=== PATIENT | female | born 1970 | race Caucasian/White ===

== ENCOUNTER → 2016-07-28 | Outpatient (CLI) | payer BC ==
[~2016-07-28] MED LIST: ALBU18002 INH; AMLO-110 PO; CHOL1TAB42 PO; LORA-741 PO; MAGN400T6 PO; MONT1TAB3 PO; MULT-506 PO; NTRGSL/4 UT; NXM/40 PO; OXYC-57 PO; SYMIN160 INH; VITA1TAB4 PO
[2016-07-28 17:26] LABS: HEMATOCRIT 45.8 % (37-47); MEAN CELL VOLUME 86.9 fL (80-100); MEAN CORPUSCULAR HEMOGLOBIN 28.8 pg (25-34); MEAN CORPUSCULAR HGB CONC 33.2 g/dl (32-36); MEAN PLATELET VOLUME 9.8 fL (7.4-10.4); PLATELET COUNT 448 K/uL (130-400); RED BLOOD COUNT 5.27 M/uL (4.2-5.4); WHITE BLOOD COUNT 17.02 K/uL (4.8-10.8)
[2016-07-28 17:47] LABS: BASO % 0.2 %; BASO ABS # 0.04 K/uL (0-0.2); COMPLETE YES; EOS % 1.2 %; IG% 0.4 %; LYMPH % 38.3 %; LYMPH ABS # 6.52 K/uL (1.2-3.4); MONO % 5.9 %
[2016-07-28 17:49] LABS: BLOOD UREA NITROGEN 11 mg/dl (7-18); BUN/CREATININE RATIO 13.8 (10-20); CALCIUM 9.3 mg/dl (8.5-10.1); CARBON DIOXIDE 30 mmol/L (21-32); CHLORIDE 104 mmol/L (98-107); GLUCOSE 85 mg/dl (70-99); POTASSIUM 3.7 mmol/L (3.5-5.1); SODIUM 142 mmol/L (136-145)
== END | disposition home or self-care (01) ==
LOC: C.LAB 16:49
PROVIDERS: ATTEND Orthopaedic Surgery
DX: Z01.812 Encounter for preprocedural laboratory examination (principal)

== ENCOUNTER → 2016-08-01 | Day surgery (SDC) | payer BC ==
[2016-07-31 10:25] VITALS: BMI 37.0
--- NOTE | 2016-07-31 17:52 | HISTORY & PHYSICAL EXAMINATION ---
DATE OF ADMISSION: 08/01/2016 HISTORY OF PRESENT ILLNESS: The patient is a very pleasant 46-year-old female, 61 inches and 194 pounds who presents with complaints of ongoing pain about her left shoulder. She has a SLAP lesion of her left shoulder and presents today for arthroscopic evaluation after failing attempts at conservative management including physical therapy, anti-inflammatories, relative rest. PAST MEDICAL HISTORY: Significant for asthma, anxiety, intermittent angina. SOCIAL HISTORY: The patient denies history of smoking, alcohol use or recreational drug use. PAST SURGICAL HISTORY: Significant for right eye surgery. FAMILY HISTORY: Otherwise unremarkable and noncontributory. ALLERGIES: PENICILLIN, CLINDAMYCIN, VANCOMYCIN. MEDICATIONS: Includes albuterol sulfate, ProAir inhaler 2 puffs 2 times a day, Nexium 40 mg by mouth daily, lorazepam 0.5 mg by mouth orally as needed. ALLERGIES: None. PAST MEDICAL HISTORY: Otherwise unremarkable. See history of present illness for pertinent positives. PHYSICAL EXAMINATION: GENERAL: A very pleasant 46-year-old female with the above findings noted. HEENT: Otherwise unremarkable. HEART: Noted to be regular at 72 beats per minute. LUNGS: Clear. No rales, rhonchi, or wheezes noted. ABDOMEN: Soft, nontender, nondistended. Bowel sounds are present in all 4 quadrants. MUSCULOSKELETAL: Consistent with that of a torn rotator cuff with a SLAP lesion. PLAN: For arthroscopy, arthroscopic SLAP repair, postoperative pain management, DVT prophylaxis, antibiotics as necessary.
[~2016-08-01] VITALS: Ht 154.9 cm; Wt 88.2 kg
[~2016-08-01] MED LIST changes: +ATROPINE SULFATE 0.1 MG/ML 5ML SYR IV PRN; +DEXAMETHASONE SOD INJ 4 MG/ML VIAL ONE; +EpHEDrine SULFATE INJ 50 MG/ML AMP IV PRN; +FENTANYL CITRATE INJ 50 MCG/1 ML 2 ML VIAL IV PRN; +FENTANYL CITRATE INJ 50 MCG/1 ML 2 ML VIAL ONE; +GLYCOPYRROLATE INJ 0.2 MG/ML VIAL ONE; +LACTATED RINGER'S 1000ML 1,000 ML IV SCH; +LIDOCAINE HCL 2% 2 ML VIAL (20MG/ML) ONE; +MIDAZOLAM HCL 1 MG/ML 2ML VIAL ONE; +MoRPHine SULFATE 2 MG/ML CARP IV PRN; +NEOSTIGMINE METHYLSULFATE 5 MG/5 ML SYR ONE; +ONDANSETRON INJ 2 MG/ML 2 ML VIAL IV PRN; +ONDANSETRON INJ 2 MG/ML 2 ML VIAL ONE; +OXYCODONE HCL IR 5 MG TAB (IMMEDIATE RELEASE) PO PRN; +PHENYLEPHRINE 100MCG/ML 5ML SYR ONE; +PROPOFOL IV EMULSION 10 MG/ML 20 ML VIAL IV ONE; +ROCURONIUM BROMIDE 10 MG/ML 5 ML VIAL ONE; +ROPIVACAINE 0.5% 5 MG/ML 30 ML VIAL ONE; +SUCCINYLCHOLINE 100MG/5ML SYR IV ONE; +VANCOMYCIN 1GM/270ML NSS IV SCH
--- NOTE | 2016-08-01 07:09 | History & Physical Bridge Note ---
H&P Re-Evaluation Bridge Note: I have examined the patient, reviewed the History & Physical and in the interval since the performance of the History & Physical I have noted the following changes of clinical significance: No changes noted
[2016-08-01 09:20] VITALS: BP 136/93; PULSE 87; TEMP 36.7; O2SAT 96; Ht 154.9 cm; Wt 88.2 kg
--- NOTE | 2016-08-01 10:26 | DIAGNOSTIC IMAGING REPORT ---
CHEST ONE VIEW PORTABLE CLINICAL HISTORY: Preoperative chest COMPARISON STUDY: No previous studies for comparison. FINDINGS: The cardiac and mediastinal contours are normal. There is no evidence of focal pulmonary consolidation. There is no evidence of failure. No pleural effusions are visualized.[ Haziness the lung bases is felt to be secondary to overlying breast tissue attenuation. There is a peritendinous calcification at the level of the left humeral head. IMPRESSION: No active disease in the chest. Electronically signed by: Isidro Jonas M.D. 08/01/2016 10:25 AM Dictated Date/Time: 08/01/2016 10:24 AM
--- NOTE | 2016-08-01 12:05 | [facility] Post Operative Brief Note ---
Immediate Operative Summary Operative Date Aug 01, 2016. Pre-Operative Diagnosis SLAP tear bicepstendon attachment Impingement syndrome Post-Operative Diagnosis same Procedure(s) Performed SLAP tear repair using 1.8 mmQfix acromioplasty Surgeon zuhair Patient Support Tech Surgeon(s) bri Estimated Blood Loss 5cc Findings SLAP tear impingement syndrome Specimens none Complication(s) None Disposition Recovery Room / PACU
[2016-08-01] MEDS: HYDROmorphone INJ 1 MG/ML SYR IV PRN ×5 (12:34→12:54)
--- NOTE | 2016-08-01 12:34 | Discharge Instructions ---
Discharge Instructions Date of Service Aug 01, 2016. Visit Reason for Visit: Left Shoulder Slap Tear, Rotator Cuff Capsule Spra Discharge Discharge Diagnosis / Problem: Slap Tear Left Shoulder; Discharge Goals Goal(s): Decrease discomfort, Improve function Activity Recommendations Activity Limitations: per Instructions/Follow-up section Anesthesia . Post Anesthesia Instructions: If you have had General Anesthesia or IV Sedation: * Do not drive today. * Resume driving when surgeon permits. * Do not make important decisions or sign legal documents today. * Call surgeon for: 1. Temperature elevations greater than 101 degrees F. 2. Uncontrollable pain. 3. Excessive bleeding. 4. Persistent nausea and vomiting. 5. Medication intolerance (nausea, vomiting or rash). * For nausea and vomiting use only clear liquids such as: tea, soda, bouillon until nausea subsides, then gradually increase diet as tolerated. * If you have any concerns or questions, call your surgeon's office. If physician is unavailable and it is an emergency, call 911 or go to the nearest emergency room. . Instructions / Follow-Up Instructions / Follow-Up [facility] [place] DISCHARGE INSTRUCTIONS: Slap Tear Repair SELF CARE INSTRUCTIONS A. You are permitted to loosen your sling/immobilizer to move your elbow, wrist , and hand to prevent stiffness. You should use your well arm (good arm) to assist the operated extremity when trying to raise the arm away from the body, hygiene purposes. Do NOT actively try to use/engage your shoulder muscles in operative arm at this time. You should NOT do overhead activity, lifting, or attempt to reach behind your back. B. You are to start Physical Therapy this Sunday after discharge. You will be provided a prescription for therapy with specific restrictions, if needed, at time of discharge. C. At 48 hours post-operatively, you may change your dressing. (Leave white steri-strips intact if present). Use band-aids and change daily. You are allowed to shower at this time and get the incision area wet, but DO NOT soak or submerge incision area in water. (No baths, swimming pools, hot tubs) D. Do NOT apply soap or any ointment/lotions directly over incision. E. You may use ice as needed to operative shoulder SPECIAL CARE INSTRUCTIONS: VERY IMPORTANT TO READ AND REVIEW A. There are a few signs you need to watch for after you are home. Call [facility] [place] at [phone] if you experience any of the following: a. Increased severe shoulder pain. Some pain is expected especially when you exercise b. Increased swelling in your shoulder or arm; pain or swelling in either upper extremity. (Note: swelling and stiffness is normal and expected for several weeks post op, depending on type of shoulder surgery you had). c. Any fluid or drainage from the incision; redness of the incision. d. Shortness of breath or chest pain. B. Please call [facility] at [phone] if you have any questions or concerns about your operation or recovery. C. Call your physician if: a. Temperature is greater than 101 degrees (F). b. Pain is not relieved by prescribed pain medications. c. Increase drainage or redness from incision. d. Unanswered questions or concerns. D. Pain Medication: a. You will be prescribed pain medication upon discharge that should last till your first post-operative appointment. b. If you experience nausea and/or skin rash, discontinue this medication and contact our office for an alternative medication. c. Caution- narcotic pain medication can cause constipation. FOLLOW UP VISIT: Please call [facility] at [phone] to schedule a follow up appointment 10-14 days from your surgery date. Diet Recommendations Recommended Home Diet: resume previous diet Procedures Procedures Performed: SLAP tear repair using 1.8 mmQfix acromioplasty Pending Studies Studies pending at discharge: no Medical Emergencies . Who to Call and When: Medical Emergencies: If at any time you feel your situation is an emergency, please call 911 immediately. . Non-Emergent Contact Non-Emergency issues call your: Surgeon Call Non-Emergent contact if: temperature is above 101.5, your pain is not controlled, your pain is worsening, wound has increased drainage, wound has increased redness . . "Provider Documentation" section prepared by Jt Godinez. [place] Drug Monitoring Program Search Results: patient reviewed within database, no issues identified
--- NOTE | 2016-08-01 13:08 | OPERATIVE REPORT ---
DATE OF OPERATION: 08/01/2016 PREOPERATIVE DIAGNOSIS: Left shoulder superior labrum anterior and posterior (lesion) tear with impingement syndrome. POSTOPERATIVE DIAGNOSIS: Same. PROCEDURES: Arthroscopy, arthroscopic acromioplasty, arthroscopic SLAP repair utilizing 1.8 mm Q-Fix anchor. SURGEON: Dr. Griffith. PHYSICAL THERAPY MANAGER: Jt Godinez PA-C who was necessary for prepping, draping, retraction, positioning the arm, wound closure and was necessary for the case. ESTIMATED BLOOD LOSS: 5 mL. COMPLICATIONS: None. HISTORY OF PRESENT ILLNESS: The patient is a very pleasant 46-year-old white female who presents with complaints of ongoing pain attributable to her left shoulder. She has been nonresponsive to conservative therapy including physical therapy, anti-inflammatories, injections, activity modification, relative rest and presents today for arthroscopic evaluation. At the time of arthroscopy, the above findings were noted. PROCEDURE IN DETAIL: After proper prepping and draping the left shoulder region, arthroscopic examination began in the region of the posterior portal, revealed there to be evidence of a SLAP lesion from 11 o'clock to 2 o'clock position. The rotator cuff was hyperemic but a full thickness tear was not noted. The SLAP tear was subsequently repaired utilizing a 1.8 mm Q-Fix both anterior and posterior with sutures placed behind the attachment site of the biceps tendon in the superior labrum. This completely reattached the labrum in excellent position with a well positioned sutures. The subacromial space was decompressed. Bursal material rotator cuff was evaluated from subacromial space. There was a small little flap but no evidence of any type of full thickness tear. It was debrided to a stable margin. An anterior inferior acromioplasty was performed. The wound was irrigated with copious amounts of sterile saline solution. Skin portals were closed with 4-0 nylon. A sterile compression dressing was placed. The patient was taken to recovery room in stable condition. I attest to the content of the Intraoperative Record and any orders documented therein. Any exceptions are noted below. MTDD
--- NOTE | 2016-08-01 13:33 | Anesthesiology Progress Note ---
Anesthesia Post Op Note Date & Time Aug 01, 2016 at 13:32 Vital Signs Pain Intensity: 8 Vital Signs Past 12 Hours Date Time Temp Pulse Resp B/P Pulse Ox O2 Delivery O2 Flow Rate FiO2 08/01/16 13:12 36.3 97 20 133/83 98 Nasal Cannula 2 08/01/16 12:41 90 20 122/92 100 Mask 10 08/01/16 12:30 87 18 135/92 100 Mask 10 08/01/16 12:17 36.5 85 16 135/91 100 Mask 10 08/01/16 09:20 36.7 87 20 136/93 96 Room Air Notes Mental Status: alert / awake / arousable, participated in evaluation Pt Amnestic to Procedure: Yes Nausea / Vomiting: adequately controlled Pain: improving with treatment Airway Patency, RR, SpO2: stable & adequate BP & HR: stable & adequate Hydration State: stable & adequate Anesthetic Complications: no major complications apparent Patient endorses burning type pain in left shoulder despite peripheral nerve block. Pain somewhat improving with IV medication but plan is to take her to phase 2 recovery so that she can take oral medication for further pain control. Will continue to monitor to ensure she is well enough controlled prior to discharge to home.
[2016-08-01 13:40] VITALS: BP 123/66; PULSE 101; TEMP 36.3; O2SAT 98
[2016-08-01 14:10] VITALS: BP 113/67; PULSE 94; O2SAT 98
[2016-08-01 14:40] VITALS: BP 121/71; PULSE 91; O2SAT 94
[2016-08-01 15:40] VITALS: BP 116/67; PULSE 108; TEMP 36.5; O2SAT 92
== END | disposition home or self-care (01) ==
LOC: C.ACU 08:32
PROVIDERS: ATTEND Orthopaedic Surgery
DX: S43.432A Superior glenoid labrum lesion of left shoulder, initial encounter (principal); M25.812 Other specified joint disorders, left shoulder; X58.XXXA Exposure to other specified factors, initial encounter; J45.909 Unspecified asthma, uncomplicated; E11.9 Type 2 diabetes mellitus without complications; F41.9 Anxiety disorder, unspecified; Z88.0 Allergy status to penicillin; Z88.1 Allergy status to other antibiotic agents; Z98.890 Other specified postprocedural states; Z68.37 Body mass index [BMI] 37.0-37.9, adult; Z87.891 Personal history of nicotine dependence